=== PATIENT | female | born 1990 | race Caucasian/White ===

== ENCOUNTER → 2022-02-04 | Outpatient (CLI) | payer OTHER ==
[~2022-02-04] MED LIST: CIPRO500 MG PO; IBUPROFEN600 MG PO
== END ==
LOC: KOH-I 12:01
DX: R10.9 Unspecified abdominal pain (principal); K92.1 Melena; K59.00 Constipation, unspecified
CPT/HCPCS: 74019

== ENCOUNTER 2022-02-20 14:10 | Emergency (ER) | payer OTHER ==
[2022-02-20 14:59] LABS: HEMOGLOBIN 11.5 gm/dl (12.3-15.3); RED BLOOD COUNT 4.5 M/UL (4.00-5.10); WHITE BLOOD COUNT 11.6 K/UL (4.5-11.0)
[2022-02-20 16:19] LABS: BUN/CREATININE RATIO 20 (0-10)
[2022-02-20] MEDS ORDERED: PROVERA10 MG PO (17:24)
== END 2022-02-20 17:35 | disposition home or self-care (01) ==
LOC: ER1 14:10
PROVIDERS: Family Medicine
DX: N93.9 Abnormal uterine and vaginal bleeding, unspecified (principal); D64.9 Anemia, unspecified; R73.9 Hyperglycemia, unspecified; Z88.2 Allergy status to sulfonamides
CPT/HCPCS: 80053; 81001; 84703; 85025; 99284